=== PATIENT | male | born 1980 | race Caucasian/White ===

== ENCOUNTER 2024-07-02 07:58 | Emergency (ER) | payer BC, SELFPAY ==
--- NOTE | ~2024-07-02 | CT_ITS ---
EXAMINATION: CT hip RT wo con DATE: 07/02/2024 09:28 INDICATION: Suspected right hip fracture based on prior radiographs presenting with pain and limping post injury TECHNIQUE: High resolution computed tomography (CT) of the right hip was performed without intravenou s contrast. Additional sagittal and coronal reconstructions were performed. Automated exposure contro l and iterative reconstruction technique were employed. The dose-length product was 261.41 mGy-cm. COMPARISON: Radiographs dated 07/12/2024 FINDINGS: Bone alignment is normal. No fracture. The artifactual appearance of fracture at the right greater tr ochanter results from small amount of enthesopathic ossification at the greater trochanteric origin o f the vastus lateralis. And visualized visceral organs in the pelvis are unremarkable. No pathologica lly enlarged right pelvic or inguinal lymphadenopathy. Small fat-containing right inguinal hernia. IMPRESSION: 1. Mild osteoarthritis of the right hip. No joint effusion or acute osseous abnormality. Reviewed, dictated and finalized at location B. IMPRESSION: 1. Mild osteoarthritis of the right hip. No joint effusion or acute osseous abn ormality.
--- NOTE | ~2024-07-02 | XR_ITS ---
AP view of the pelvis and AP and lateral views of the right hip Clinical history: Pain Findings: Questionable nondisplaced acute fracture isolated to the right greater trochanter. No other fracture or dislocation seen. Bilateral hip and SI joint spaces are preserved. Soft tissues are unre markable. Impression: Questionable nondisplaced acute fracture isolated to the right greater trochanter. Consider cross-sec tional imaging to further evaluate as indicated. Reviewed, dictated and finalized at location M. Impression: Questionable nondisplaced acute fracture isolated to the right greater trochant er. Consider cross-sectional imaging to further evaluate as indicated.
[2024-07-02 08:02] VITALS: BP 174/133; PULSE 98; RESP 16; TEMP 36.6; O2SAT 99
--- NOTE | 2024-07-02 08:09 | ED.LOWEXIN ---
HPI - Extremity Injury (Lower) General Chief Complaint: Extremity Injury, Lower Stated Complaint: R hip Time Seen by Provider: 07/02/24 08:06 Source: patient and family Mode of arrival: ambulatory Limitations: no limitations History of Present Illness HPI Narrative: Patient was doing certain movement yesterday like exercise, lost his balance and fell on the right hip laterally. He denies other injuries. Worse with walking, better laying down. Patient is healthy otherwise, does not take any medicine at home. Related Data Allergies Allergy/AdvReac Type Severity Reaction Status Date / Time No Known Allergies Allergy Verified 07/02/24 08:05 Review of Systems Review of Systems: All systems reviewed & are unremarkable except as noted in HPI and below Exam Narrative: General appearance: Well-developed, well-nourished Skin: Normal color Head: Normocephalic, nontraumatic Eyes: Clear conjunctiva ENT: Oropharynx normal, ears normal, nose normal Neck: Supple, nontender Chest and respiratory: Airway patent, no respiratory distress, no accessory muscle use Heart: Regular rate/rhythm Abdomen: Soft, nontender, no organomegaly, quiet bowel sounds Vascular: Normal peripheral pulses, normal capillary refill. Musculoskeletal: Diffuse tenderness right hip, slight limited range of motion, no bruises or swelling or deformity Neurologic: Alert and oriented ?3, INSTRUMENT STERILIZER is normal as tested, no gross motor deficit Course Vital Signs Vital signs: Vital Signs Temperature 36.6 C 07/02/24 08:02 Pulse Rate 98 07/02/24 08:02 Respiratory Rate 16 07/02/24 08:02 Blood Pressure 174/133 H 07/02/24 08:02 Pulse Oximetry 99 07/02/24 08:02 Oxygen Delivery Room Air 07/02/24 08:02 Temperature 36.6 C 07/02/24 08:02 Pulse Rate 98 07/02/24 08:02 Respiratory Rate 16 07/02/24 08:02 Blood Pressure 174/133 H 07/02/24 08:02 Pulse Oximetry 99 07/02/24 08:02 Oxygen Delivery Room Air 07/02/24 08:02 MDM - Extremity Injury (Lower) MDM Narrative Medical decision making narrative: Differential diagnosis include contusion versus fracture X-ray showed possible fracture CT scan of the hip showed no fracture. The pt was discharged to home.the pt,s condition upon discharge was fair,education was provided to the pt in reference to the final impression,discharge study results,treatment,prognosis and need for follow up . Differential Diagnosis Differential diagnosis: Likely fracture of femur, fracture of hip and other Lab Data 07/02/24 08:57 07/02/24 08:57 Labs: Lab Results 07/02/24 Range/Units 08:57 WBC 12.7 H (4.5-10.0) K/mm3 RBC 5.38 (4.6-6.20) M/mm3 Hgb 16.1 (14.0-18.0) g/dL Hct 48.2 (42.0-52.0) % MCV 89.6 (80-100) fl MCH 29.9 (26-34) pg MCHC 33.4 (32-36) g/dl RDW 12.8 (11.5-14.5) % Plt Count 290 (150-375) k/mm3 MPV 9.2 (7.4-10.4) fl Immature Gran % (Auto) 0.4 (0-0.5) % Neut % (Auto) 64.5 (45.5-73.1) % Lymph % (Auto) 25.6 (18.3-44.2) % Lewis % (Auto) 7.2 (2.6-8.5) % Eos % (Auto) 1.7 (0-4.4) % Baso % (Auto) 0.6 (0.2-1.2) % Lymph # (Auto) 3.24 H (0.9-3.2) K/mm3 Lewis # (Auto) 0.9 H (0.1-0.6) K/mm3 Eos # (Auto) 0.2 (0-0.3) K/mm3 Baso # (Auto) 0.1 (0.0-0.1) K/mm3 Abs Immat Gran (auto) 0.05 H (0.00-0.031) K/mm3 Absolute Neuts (auto) 8.2 H (1.3-6.7) K/mm3 Absolute Nucleated RBC 0.000 (0.0-0.012) K/mm3 Nucleated RBC % 0.0 (0.0-0.2) % PT 12.3 (11.1-14.7) Seconds INR 0.9 APTT 30.8 (22.3-36.8) Seconds Sodium Pending Potassium Pending Chloride Pending Carbon Dioxide Pending Anion Gap Pending BUN Pending Creatinine Pending Estim Creat Clear Calc Pending Estimated GFR Pending Glucose Pending Calcium Pending Total Bilirubin Pending AST Pending ALT Pending Alkaline Phosphatase Pending Total Protein Pending Albumin Pending Imaging Data Radiologist's impression: Impressions Hip/Pelvis X-Ray 07/02/24 08:37 Impression: Questionable nondisplaced acute fracture isolated to the right greater trochanter. Consider cross-sectional imaging to further evaluate as indicated. Hip CT 07/02/24 09:30 IMPRESSION: 1. Mild osteoarthritis of the right hip. No joint effusion or acute osseous abnormality. Critical Care Time Critical Care Time Critical Care Time: No Discharge Plan Discharge Clinical Impression: Hip joint pain Patient Disposition: Home Condition: Stable Instructions: Hip Pain (ED) Additional Instructions: Return if symptoms are worsening , call your family physician for appointment, take Tylenol, ibuprofen as as needed for aches and pain, continue home medications. Crutches as needed Ice pack 20 minutes/hour for the next 24 hours Patient Language: Kazakh Follow-up/Referrals: PHYSICIAN,IN FLIGHT TECHNICIAN [Non-Staff] - Erasmo Tierney MD [Physician] - 07/07/24
--- OUTSIDE RECORDS SUMMARY | 2024-07-02 08:49 | XMS_ITS | Encounter Summary ---
Author Organization [facility] Address [facility] [place] [address] Care Team Providers Care Faculty Member Name Role Phone Isidro Lindquist MD Primary Care Provider Unav Isidro Cortez MD Primary Care Provider Unav ailable Paras Malcolm MD Primary Care Provide r Encounter Details Date Type Department Care Team (Late st Contact Info) Description 01/25/2012 Abstract [facility] Conversion , Generic Conversion, Social History Tobacco Use Types Packs/Day Years Used Date Smoking Tobacco: Never Assessed Sex and Gender Information Value Date Recorded Sex Assigned at Not on file Legal Sex Male 6:50 PM CDT Gender Identity Not on file Sexual Orientation Not on file documented as of this encounter Plan of Treatment Not on file documented as of this encounter Visit Diagnoses Not on filedocumented in this encounter Additional Health Concerns Infection Onset Date Last Indicated Resolved Time COVID-19 Rule Out 01/27/2020 01/27/2020 01/30/2020 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
--- OUTSIDE RECORDS SUMMARY | 2024-07-02 08:49 | XMS_ITS | Encounter Summary ---
Author Organization [facility] Address [facility] [place] [address] Care Team Providers Care Casting Cleaner Name Role Phone Isidro Lindquist MD Primary Care Provider Paras Pollack MD Primary Care Provide r Encounter Details Date Type Department Care Team (Late st Contact Info) Description 04/03/2017 Abstract [facility] Conversion Debi Arita NP Social History Tobacco Use Types Packs/Day Years Used Date Smoking Tobacco: Never Assessed Sex and Gender Information Value Date Recorded Sex Assigned at Not on file Legal Sex Male 6:50 PM CDT Gender Identity Not on file Sexual Orientation Not on file documented as of this encounter Miscellaneous Notes * Letter - Debi Arita NP - 04/03/2017 12:00 AM CST Apr 03, 2017 Please excuse, Darian Maldonadonings, from work/school on 04-02-2017 and 04-03-2017, due to illness. 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
--- OUTSIDE RECORDS SUMMARY | 2024-07-02 08:49 | XMS_ITS | Encounter Summary ---
Author Organization [facility] Address [address] [place] [address] Care Team Providers Care Anesthesia Resident Name Role Phone Paras Malcolm MD Primary Care Provide r Encounter Details Date Type Department Care Team (Late st Contact Info) Description 08/01/2018 PROCESS TANK TENDER ONLY [facility] Medical [facility] Priority Care - SValentin Casper [address] [place] [address] Scanned, Documents Social History Tobacco Use Types Packs/Day Years Used Date Smoking Tobacco: Some Days Cigars Smokeless Tobacco: Former Chew Alcohol Use Standard Drinks/Week Comments Yes 0 (1 standard drink = 0.6 oz pur e alcohol) AUDIT-C Answer Date Recorded Frequency of Alcohol Consumption Monthly or less 02/12/2018 Average Number of Drinks Not on file 018 Frequency of Binge Drinking Not on file 01/25 Sex and Gender Information Value Date Recorded Sex Assigned at Not on file Legal Sex Male 6:50 PM CDT Gender Identity Not on file Sexual Orientation Not on file documented as of this encounter OR Notes * Op Note - Zscanned, Documents - 08/01/2018 11:39 AM CDT DARIAN PACHECO MD: Acct: [id number] Admit/Service Date: 08/01/18 Discharge Date: 08/01/18 : 1980 Pt Type: DEP SDC Sex: M Ord Site: [facility] OPERATIVE RECORD Date of Operation: 08/01/2018 Surgeon: Uri Rojas M.D. Ass't: Chart Document Preoperative Diagnosis: Torn medial meniscus. Postoperative Diagnosis: Torn medial meniscus. Name of Operation: Arthroscopy of the right knee with partial medial meniscectomy. PROCEDURE AND FINDINGS: ANESTHESIA: General. PROCEDURE: After suitable induction of general anesthesia the patient's right leg was placed in a leg brace and prepped and draped in the usual fashion. After exsanguination with the Esmarch bandage the automatic tourniquet was inflated to 300 mm of pressure. The arthroscope was inserted just lateral to the patella tendon and the joint line and the joint was viewed. The lateral compartment was relatively normal. The articular surfaces were normal. No loose bodies seen. ACL/PCL complex showed some mild signs of hemorrhage. In the medial compartment there was a complex type tear of middle to posterior one-third of an unstable nature which was smoothed with the meniscal shaver to stable meniscal tissue. Additionally, there was some articular surface involvement almost down to subchondral bone in several areas in the medial femoral condyle. The inflow was then shut off. The instruments were removed. The incision sites were closed with evans and a sterile dressing of Adaptic, 4 x 4, ABD, Kerlix, and Pedro wrap was applied. The automatic tourniquet was deflated. The total tourniquet time for the case was approximately 15 minutes. He tolerated the procedure well, was awakened and returned to the recovery room in satisfactory condition. Electronically Signed By: Uri Rojas M.D. 08/05/2018 02:45 P Uri Rojas M.D. 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
--- OUTSIDE RECORDS SUMMARY | 2024-07-02 08:49 | XMS_ITS | Clinical Summary ---
Author Organization [facility] Address [address] [place] [address] Care Team Providers Care Sales Management Trainee Name Role Phone Paras Malcolm MD Primary Care Provide r Allergies No known active allergies Medications ibuprofen (ADVIL) 200 MG tablet Take by mouth 2 (two) times a day. Active methylPREDNISol one, JOHN, 4 MG tablet Take 1 tablet (4 mg total) by mouth daily. 6 TABLETS ON DAY ONE, 5 TABLETS DAY TWO, 4 TABLETS DAY THREE, 3 TABLETS DAY FOUR, 2 TABLETS DAY FIVE, AND 1 TABLET DAY SIX 1 each 09/24/2021 Active dextromethorpha n-guaiFENesin ER (MUCINEX DM) 30-600 MG TABLET SR 12 HR 12 hr tablet Take 1 tablet by mouth every 12 (twelve) hours as needed. 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 Family History Medical History Relation Comments Cancer Father Hyperlipidemia Father Hypertension Father Cancer Mother Hyperlipidemia Mother Hypertension Mother Relation Status Comments Father Mother Social History Tobacco Use Types Packs/Day Years [...] on file Sexual Orientation Not on file Last Filed Vital Signs Vital Sign Reading Time Taken Comments Blood Pressure 136/96 09/24/2021 1:04 PM CDT Pulse 96 09/24/2021 1:04 PM CDT Temperature 36.9 C (98.4 F) 09/24/2021 1:04 PM CDT Respiratory Rate 18 09/24/2021 1:04 PM CDT Oxygen Saturation 99% 09/24/2021 1:04 PM CDT Inhaled Oxygen Concentration - - Weight 79.4 kg (175 lb) 09/24/2021 1:04 PM CDT Height 185.4 cm (6' 1 ) 09/24/2021 1:04 PM CDT Body Mass Index 23.09 09/24/2021 1:04 PM CDT Plan of Treatment Health Maintenance Due Date Last Done Comments Annual Physical 07/01/1982 Pneumococcal Vaccine: Pediatrics (0 to 5 Years) and At-Risk Patients (6 to 64 Years) (1 of 2 - PCV) 07/01/1985 Hepatitis C 07/01/1997 DTaP, Tdap and Td Vaccines ( 1 - Tdap) 07/01/1998 Hepatitis B Vaccines (1 of 3 - 19+ 3-dose series) 07/01/1998 COVID-19 Vaccine (2023-2 5 season) 2023 01/01/2021, 11/30/2020 HPV Vaccines Aged Out No longer eligi ble based on patient's age to complete this topic Meningococcal B Vaccine Aged Out No l onger eligible based on patient's age to complete this topic Meningococcal Vaccine Aged Out No reinier rosalio eligible based on patient's age to complete this topic RSV Immunizations Under 20 Months Aged Out No longer eligible b ased on patient's age to complete this topic Insurance [facility] Care Teams Sales Management Trainee Relationship Specialty [place] [address] [place] [id number] PCP - General INTERNAL MEDICINE 02/12/18
[2024-07-02] MEDS: ONDANSETRON INJ 4 MG/2 ML VIAL IV PUSH (08:55)
[2024-07-02] MEDS: HYDROmorphone HCL INJ (*CRX) 1 MG/ML SYR 0.5 MG IV PUSH (08:55)
--- NOTE | 2024-07-02 09:04 | ECG_ITS ---
Test Date: 2024-07-02 09:14:20 Measurements Intervals [place] Rate: 79 P: 54 ID: [id number] QRS: 63 QRSD: 93 T: 52 QT: 359 QTc: 413 Interpretive Statements SINUS RHYTHM WITH SINUS ARRHYTHMIA NORMAL ECG No previous ECG available for comparison Electronically Signed On 07-02-2024 09:24:46 CDT by Jon Cao D.O.
[2024-07-02 09:12] LABS: Basophils Absolute Auto 0.1 K/mm3 (0.0-0.1); Basophils Percent Auto 0.6 % (0.2-1.2); Eosinophils Absolute Auto 0.2 K/mm3 (0-0.3); Eosinophils Percent Auto 1.7 % (0-4.4); Hematocrit 48.2 % (42.0-52.0); Hemoglobin 16.1 g/dL (14.0-18.0); Immature Granulocyte Absolute 0.05 K/mm3 (0.00-0.031); Immature Granulocyte Percent A 0.4 % (0-0.5); Lymphocytes Absolute Auto 3.24 K/mm3 (0.9-3.2); Lymphocytes Percent Auto 25.6 % (18.3-44.2); Mean Corpuscular HGB Conc 33.4 g/dl (32-36); Mean Corpuscular Hemoglobin 29.9 pg (26-34); Mean Corpuscular Volume 89.6 fl (80-100); Mean Platelet Volume 9.2 fl (7.4-10.4); Monocytes Absolute Auto 0.9 K/mm3 (0.1-0.6); Monocytes Percent Auto 7.2 % (2.6-8.5); Neutrophils Absolute Auto 8.2 K/mm3 (1.3-6.7); Neutrophils Percent Auto 64.5 % (45.5-73.1); Platelet Count Result 290 k/mm3 (150-375); Red Blood Count 5.38 M/mm3 (4.6-6.20); Red Cell Distribution Width 12.8 % (11.5-14.5); White Blood Count 12.7 K/mm3 (4.5-10.0)
[2024-07-02 09:22] LABS: INR 0.9; Prothrombin Time 12.3 Seconds (11.1-14.7)
[2024-07-02 09:23] LABS: Partial Thromboplastin Time 30.8 Seconds (22.3-36.8)
[2024-07-02 10:00] LABS: Alanine Aminotransferase 26 U/L (6-50); Albumin Level 4.6 g/dL (3.5-5.1); Alkaline Phosphatase 104 U/L (38-126); Anion Gap 10 mmol/L (4-12); Aspartate Amino Transferase 29 U/L (17-59); Bilirubin,Total 0.4 mg/dL (0.2-1.3); Blood Urea Nitrogen 13 mg/dL (9-20); Calcium 8.9 mg/dL (8.4-10.2); Carbon Dioxide 22 mmol/L (22-30); Chloride 106 mmol/L (98-107); Estimated CRCL calculation 125 ml/min; Estimated Glomerular Filt Rate > 60; Glucose 101 mg/dL (65-110); Potassium 4.4 mmol/L (3.4-5.0); Sodium 138 mmol/L (137-145)
[2024-07-02 10:26] VITALS: BP 166/121; PULSE 81; RESP 16; O2SAT 96
== END 2024-07-02 10:27 | disposition home or self-care (01) ==
PROVIDERS: Emergency Provider Emergency Medicine
DX: S79.911A Unspecified injury of right hip, initial encounter (principal); M16.11 Unilateral primary osteoarthritis, right hip; W18.39XA Other fall on same level, initial encounter
CPT/HCPCS: 36415; 73502; 73700; 80053; 85025; 85610; 85730; 86850; 86900; 86901; 93005; 96374; 96375; 99284; J1171; J2405